=== PATIENT | male | born 1990 | race Caucasian/White ===

== ENCOUNTER 2020-01-17 22:47 | Emergency (ER) | payer SELFPAY ==
[~2020-01-17] VITALS: Ht 170.2 cm; Wt 90.7 kg
[2020-01-17 22:52] VITALS: Ht 170.2 cm; Wt 90.7 kg
[2020-01-18 03:07] VITALS: BP 118/53
== END 2020-01-18 03:07 | disposition home or self-care (01) ==
LOC: ED 22:47
DX: R50.9 Fever, unspecified (principal); M79.10 Myalgia, unspecified site; Z20.828 Contact with and (suspected) exposure to other viral communicable diseases
CPT/HCPCS: 87804; Q0092